=== PATIENT | female | born 1940 | race Caucasian/White ===

== ENCOUNTER → 2016-10-03 | Day surgery (SDC) | payer MEDICARE, OTHER | END | disposition home or self-care (01) | LOC: SDC 10:27 | DX: C67.2 Malignant neoplasm of lateral wall of bladder (principal); N13.2 Hydronephrosis with renal and ureteral calculous obstruction; N95.2 Postmenopausal atrophic vaginitis; N36.8 Other specified disorders of urethra; N32.89 Other specified disorders of bladder; Z88.8 Allergy status to other drugs, medicaments and biological substances; I10 Essential (primary) hypertension; E07.9 Disorder of thyroid, unspecified; E11.9 Type 2 diabetes mellitus without complications | CPT/HCPCS: C1758; C2617; J0585; Q9967 ==